=== PATIENT | male | born 1955 | race Caucasian/White ===

== ENCOUNTER 2017-04-19 09:15 | Emergency (ER) | payer BC ==
[2017-04-19 09:36] VITALS: BP 154/92
--- NOTE | 2017-04-19 10:05 | UC ---
General HPI - HPI Summary HPI Summary: Pt presents to the reports x 6 days not feeling himself. Pt states feels fatigue, decreased energy and mood is somewhat unsettled. Pt denies fevers, chills, rash. Pt denies cp, sob, abd pain. no n/v/d. No AWAD, vision changes. PT states has a h/o a fib with ablation in 2016. Pt states then developed GI bleed from AVM which was cauterized as well. Pt states resumed smoking. Pt states feels not himself and wanted to be checked. Pt with neg cardiac cath 10 years ago. No coronary artery imaging since this time. Pt medications reviewed at this visit - History of Current Complaint Chief Complaint: UCGeneralIllness Stated Complaint: DOES NOT FEEL RIGHT Time Seen by Provider: 04/19/17 09:41 Hx Obtained From: Patient Onset Severity: Mild Current Severity: Mild Pain Intensity: 0 - Allergy/Home Medications Allergies/Adverse Reactions: Allergies Allergy/AdvReac Type Severity Reaction Status Date / Time No Known Allergies Allergy Verified 04/19/17 09:26 Home Medications: Home Medications Losartan TAB* [Cozaar TAB*] 1 tab PO DAILY 04/19/17 [History Confirmed 04/19/17] PMH/Surg Hx/FS Hx/Imm Hx Previously Healthy: Yes Endocrine History: Dyslipidemia Cardiovascular History: Hypertension, Atrial Fibrillation - Surgical History Surgical History: Yes Surgery Procedure, Year, and Place: APPY. TONSILS. CARDIAC ABLATION. SURGERY TO CORRECT/BURN GI BLEED ([facility]) - Family History Known Family History: Positive: Cardiac Disease - CHF - Social History Occupation: Employed Full-time Lives: With Family Alcohol Use: Occasionally Substance Use Type: None Smoking Status (MU): Light Every Day Tobacco Smoker Type: Cigarettes Amount Used/How Often: 1 pack a day since he was in his twenties Have You Smoked in the Last Year: Yes - Immunization History Most Recent Influenza Vaccination: never Most Recent Tetanus Shot: unk Most Recent Pneumonia Vaccination: never Review of Systems Constitutional: Fatigue Skin: Negative Eyes: Negative ENT: Negative Respiratory: Negative Cardiovascular: Negative Gastrointestinal: Negative Genitourinary: Negative Motor: Negative Neurovascular: Negative Musculoskeletal: Negative Neurological: Negative Psychological: Negative All Other Systems Reviewed And Are Negative: Yes Physical Exam Triage Information Reviewed: Yes Appearance: Well-Appearing, No Pain Distress, Well-Nourished, Other: - A+Ox3 tired appearing NAD Vital Signs: Initial Vital Signs Temp 99.3 F 04/19/17 09:30 Pulse 64 04/19/17 09:30 Resp 16 04/19/17 09:30 BP 154/92 04/19/17 09:30 Pulse Ox 98 04/19/17 09:30 Vital Signs Reviewed: Yes Eye Exam: Normal Eyes: Positive: Conjunctiva Clear ENT Exam: Normal ENT: Positive: Hearing grossly normal, Pharynx normal, TMs normal Neck exam: Normal Neck: Positive: Supple, Nontender, No Lymphadenopathy Respiratory Exam: Normal Respiratory: Positive: Chest non-tender, Lungs clear, Normal breath sounds Cardiovascular Exam: Normal Cardiovascular: Positive: RRR, No Murmur, Other: - no bruits b/l Abdominal Exam: Normal Abdomen Description: Positive: Nontender, No Organomegaly, Soft Bowel Sounds: Positive: Present Musculoskeletal Exam: Normal Musculoskeletal: Positive: Strength Intact, ROM Intact, No Edema Neurological Exam: Normal Neurological: Positive: Alert Psychological Exam: Normal Psychological: Positive: Normal Response To Family Skin Exam: Normal Diagnostics - EKG Cardiac Rate: NL Cardiac Rhythm: Sinus: Normal Ectopy: PVCs, PACs ST Segment: Normal Course/Dx - Course Course Of Treatment: Pt presents with feeling fatigue and "off" x 6 days. Pt denies pain or focal symptoms. Pt with h/o atrial fib s/p ablation. Pt EKG today sinus rhythm with PAC, PVC. d/w pt at length - recommend transfer to ED for labs and further monitoring and evaluation. Pt comfortable and in agreement with plan. Pt declined EMS. at bedside to drive to ED. Pt's BP noted to be elevated - pt advised to f/u - Differential Dx - Multi-Symptom Provider Diagnoses: fatigue,. PACs. PVCs Discharge - Discharge Plan Condition: Stable Disposition: AGAINST MEDICAL ADVICE Patient Education Materials: Palpitations (ED), Fatigue (ED) Referrals: No Primary Care Phys,NOPCP [Primary Care Provider] - Additional Instructions: The doctor that evaluated you today recommends you go to the hospital for additoinal evaluation. You will likely have bloodwork and imaging as well as additional heart monitoring It is recommended someone drive you as you have declined an ambulance Do directly to the emergency department - they are expecting you. If your symptoms change or you have any concerns, frame pulley mortising machine operator and call 911
== END 2017-04-19 10:05 | disposition left against medical advice (07) ==
LOC: UCEAST 09:15
DX: R53.83 Other fatigue (principal); I49.1 Atrial premature depolarization; I49.3 Ventricular premature depolarization; E78.5 Hyperlipidemia, unspecified; I10 Essential (primary) hypertension; I48.91 Unspecified atrial fibrillation; F17.210 Nicotine dependence, cigarettes, uncomplicated
CPT/HCPCS: 99213; G0463

== ENCOUNTER 2017-04-19 10:27 | Emergency (ER) | payer BC ==
[2017-04-19 12:07] LABS: Hematocrit 47 % (42-52); Hemoglobin 15.5 g/dl (14.0-18.0); Mean Corpuscular HGB Conc 33 g/dl (31-36); Mean Corpuscular Hemoglobin 29 pg (27-31); Mean Corpuscular Volume 89 fL (80-94); Mean Platelet Volume 8 um3 (7.4-10.4); Red Blood Count 5.28 10^6/ul (4.0-5.4); Red Cell Distribution Width 15 % (10.5-15)
[2017-04-19 12:22] LABS: Albumin 4.1 g/dL (3.2-5.2); Calcium 9.2 mg/dL (8.6-10.3); EGFR African American 126.4 (>60); EGFR Non-African American 98.3 (>60); Globulin 2.7 g/dL (2-4); Magnesium 2.1 mg/dL (1.9-2.7); Potassium 3.9 mmol/L (3.5-5.0); Total Bilirubin 0.4 mg/dL (0.2-1.0); Total Protein 6.8 g/dL (6.4-8.9)
[2017-04-19 12:24] LABS: Troponin I 0.01 ng/mL (<0.04)
[2017-04-19 13:07] LABS: TSH (Thyroid Stimulating Horm) 0.79 mcIU/mL (0.34-5.60)
[2017-04-19 13:43] VITALS: BP 137/86
--- NOTE | 2017-04-19 15:28 | ED ---
Agustina Khan Auryana, scribed for Víctor Bedolla MD on 04/19/17 at 1121 . Palpitations / Dysrhythmia - HPI Summary HPI Summary: 61 year old male was referred to the ED from [facility] for further assessment of abnormal EKG. Patient reports that he has not been feeling well - unsure if stressed or over working and states that the EKG done at [facility] showed "extra beats" - unaware of extra beats. He is not on a blood thinner. He denies any recent episodes since an ablation and denies any excessive caffeine use - reports 1 cup/day. PMHX is significant for a-fib (unaware of previous episode until diagnosed), cardiac ablation, and GI bleed . - History of Current Complaint Chief Complaint: EDDysrhythmPalp Time Seen by Provider: 04/19/17 10:51 Hx Obtained From: Patient Onset/Duration: Gradual Onset, Still Present Timing: Constant Severity Initially: Mild Severity Currently: Mild Character: Irregular - seen on EKG - states does not feel them Aggravating: Exertion - STRESS/OVERWORK Related History: Similar Episode/Dx as - see HPI - Allergy/Home Medications Allergies/Adverse Reactions: Allergies Allergy/AdvReac Type Severity Reaction Status Date / Time No Known Allergies Allergy Verified 04/19/17 09:26 PMH/Surg Hx/FS Hx/Imm Hx Endocrine/Hematology History: Denies: Hx Diabetes, Hx Thyroid Disease Cardiovascular History: Reports: Hx Atrial Fibrillation, Hx Hypertension, Hx Syncope, Other Cardiovascular Problems/Disorders - mitral valve prolapse, RECENT ABLATION FOR A-FIB WHICH Denies: Hx Congestive Heart Failure Respiratory History: Reports: Hx Sleep Apnea Denies: Hx Asthma, Hx Chronic Obstructive Pulmonary Disease (COPD) GI History: Reports: Hx Gastroesophageal Reflux Disease Denies: Hx Ulcer History: Denies: Hx Dialysis, Hx Renal Disease Sensory History: Reports: Hx Contacts or Glasses Opthamlomology History: Reports: Hx Contacts or Glasses Psychiatric History: Reports: Hx Substance Abuse - etoh - Surgical History Surgery Procedure, Year, and Place: APPY. TONSILS. CARDIAC ABLATION. SURGERY TO CORRECT/BURN GI BLEED Hx Anesthesia Reactions: No Infectious Disease History: No Infectious Disease History: Denies: Hx Clostridium Difficile, Hx Hepatitis, Hx Human Immunodeficiency Virus (HIV), Hx of Known/Suspected MRSA, Hx Shingles, Hx Tuberculosis, Hx Known/ Suspected VRE, Hx Known/Suspected VRSA, History Other Infectious Disease, Traveled Outside the [place] in Last 30 Days - Family History Known Family History: Positive: Cardiac Disease - CHF - Social History Occupation: Employed Full-time Lives: With Family Alcohol Use: Occasionally Substance Use Type: Reports: None Hx Tobacco Use: Yes Smoking Status (MU): Heavy Every Day Tobacco Smoker Type: Cigarettes Amount Used/How Often: 1 pack a day since he was in his twenties Have You Smoked in the Last Year: Yes Review of Systems Positive: Other - general illness. Negative: Fever Eyes: Negative ENT: Negative Positive: Palpitations Respiratory: Negative Gastrointestinal: Negative Genitourinary: Negative Musculoskeletal: Negative Skin: Negative Neurological: Negative Psychological: Normal All Other Systems Reviewed And Are Negative: Yes Physical Exam Triage Information Reviewed: Yes Vital Signs On Initial Exam: Initial Vitals Temp Pulse Resp BP Pulse Ox 98.6 F 68 16 154/82 97 04/19/17 10:29 04/19/17 10:29 04/19/17 10:29 04/19/17 10:29 04/19/17 10:29 Vital Signs Reviewed: Yes Appearance: Positive: Well-Appearing, No Pain Distress, Well-Nourished Skin: Positive: Warm, Skin Color Reflects Adequate Perfusion, Dry Head/Face: Positive: Normal Head/Face Inspection Eyes: Positive: Normal ENT: Positive: Normal ENT inspection Neck: Positive: Supple, Nontender Respiratory/Lung Sounds: Positive: Clear to Auscultation, Breath Sounds Present Cardiovascular: Positive: Other - irregularly irregular heartbeat Abdomen Description: Positive: Nontender, Soft Musculoskeletal: Positive: Normal, Strength/ROM Intact Neurological: Positive: Normal, Sensory/Motor Intact Psychiatric: Positive: Normal, Affect/Mood Appropriate Diagnostics - Vital Signs Vital Signs Temp Pulse Resp BP Pulse Ox 04/19/17 10:57 18 04/19/17 10:41 15 04/19/17 10:40 154/82 04/19/17 10:29 98.6 F 68 17 154/82 97 - Laboratory Lab Results: Lab Results 04/19/17 04/19/17 04/19/17 Range/Units 11:57 11:57 11:57 WBC 8.0 (3.5-10.8) 10^3/ul RBC 5.28 (4.0-5.4) 10^6/ul Hgb 15.5 (14.0-18.0) g/dl Hct 47 (42-52) % MCV 89 (80-94) fL MCH 29 (27-31) pg MCHC 33 (31-36) g/dl RDW 15 (10.5-15) % Plt Count 229 (150-450) 10^3/ul MPV 8 (7.4-10.4) um3 Neut % (Auto) 67.4 (38-83) % Lymph % (Auto) 20.1 L (25-47) % [place] % (Auto) 10.5 H (1-9) % Eos % (Auto) 1.2 (0-6) % Baso % (Auto) 0.8 (0-2) % Absolute Neuts (auto) 5.4 (1.5-7.7) 10^3/ul Absolute Lymphs (auto) 1.6 (1.0-4.8) 10^3/ul Absolute Monos (auto) 0.8 (0-0.8) 10^3/ul Absolute Eos (auto) 0.1 (0-0.6) 10^3/ul Absolute Basos (auto) 0.1 (0-0.2) 10^3/ul Absolute Nucleated RBC 0.01 10^3/ul Nucleated RBC % 0.1 Sodium 135 (133-145) mmol/L Potassium 3.9 (3.5-5.0) mmol/L Chloride 105 (101-111) mmol/L Carbon Dioxide 25 (22-32) mmol/L Anion Gap 5 (2-11) mmol/L BUN 12 (6-24) mg/dL Creatinine 0.80 (0.67-1.17) mg/dL Est GFR ( Amer) 126.4 (>60) Est GFR (Non-Af Amer) 98.3 (>60) BUN/Creatinine Ratio 15.0 (8-20) Glucose 97 (70-100) mg/dL Lactic Acid 0.8 (0.5-2.0) mmol/L Calcium 9.2 (8.6-10.3) mg/dL Magnesium 2.1 (1.9-2.7) mg/dL Total Bilirubin 0.40 (0.2-1.0) mg/dL AST 14 (13-39) U/L ALT 13 (7-52) U/L Alkaline Phosphatase 70 (34-104) U/L Troponin I 0.01 (<0.04) ng/mL Total Protein 6.8 (6.4-8.9) g/dL Albumin 4.1 (3.2-5.2) g/dL Globulin 2.7 (2-4) g/dL Albumin/Globulin Ratio 1.5 (1-3) TSH 0.79 (0.34-5.60) mcIU/mL Result Diagrams: 04/19/17 11:57 04/19/17 11:57 Lab Statement: Any lab studies that have been ordered have been reviewed, and results considered in the medical decision making process. - EKG 10:42 EKG Interpretation: NSR with frequent PVCs Re-Evaluation - Re-Evaluation First Eval Re-Evaluation Time: 13:26 - discussed discharge and f/u Course/Dx - Course Course Of Treatment: has been feeling unwell for 2-3 days. He denies CP, SOB, palpitations, N/V/D. He felt similarly when he had A-fib in the past ( prior to his ablation) so he went to [facility] to make sure he wasn't back in it. They noted him to be in sinus with frequent VPC's and sent him over here. His W/ U here was unremarkable but he did continue to have frequent VPC's. I don't think anything dangerous is happening and will recommend D/C and close F/U. - Diagnoses Provider Diagnoses: Malaise Discharge - Discharge Plan Condition: Stable Disposition: HOME Patient Education Materials: Fatigue (ED) Referrals: [facility] [place] [facility] [Outside] - 3 Days The documentation as recorded by the Agustina byrnes Auryana accurately reflects the service I personally performed and the decisions made by me, Víctor Bedolla MD.
== END 2017-04-19 13:43 | disposition home or self-care (01) ==
LOC: ED 10:27
DX: R53.81 Other malaise (principal); K21.9 Gastro-esophageal reflux disease without esophagitis; F17.210 Nicotine dependence, cigarettes, uncomplicated; I48.91 Unspecified atrial fibrillation; I10 Essential (primary) hypertension; I34.1 Nonrheumatic mitral (valve) prolapse
CPT/HCPCS: 36415; 80053; 83605; 83735; 84443; 84484; 85025; 93005; 99282

== ENCOUNTER 2018-03-08 08:21 | Emergency (ER) | payer BC ==
[2018-03-08] MEDS ORDERED: NS 0.9% 1000 ML* 1,000 ML IV SCH (08:45)
[2018-03-08 08:58] LABS: ABS Basophils 0.1 10^3/ul (0-0.2); ABS Eosinophils 0.3 10^3/ul (0-0.6); ABS Lymphocytes 1.9 10^3/ul (1.0-4.8); ABS Monocytes 0.9 10^3/ul (0-0.8); ABS Neutrophils 6.6 10^3/ul (1.5-7.7); ABS Nucleated RBC 0 10^3/ul; Eosinophil % 2.7 % (0-6); Hematocrit 43 % (42-52); Hemoglobin 14.9 g/dl (14.0-18.0); Lymphocyte % 19.3 % (25-47); Mean Corpuscular HGB Conc 35 g/dl (31-36); Mean Corpuscular Hemoglobin 29 pg (27-31); Mean Corpuscular Volume 85 fL (80-94); Mean Platelet Volume 7.6 um3 (7.4-10.4); Nucleated Red Blood Cells % 0.1; Platelet Count 355 10^3/ul (150-450); Red Blood Count 5.08 10^6/ul (4.0-5.4); Red Cell Distribution Width 14 % (10.5-15); White Blood Count 9.7 10^3/ul (3.5-10.8)
[2018-03-08 09:10] LABS: INR 1.28 (0.77-1.02)
[2018-03-08 09:25] LABS: EGFR Non-African American 82.3 (>60)
--- NOTE | 2018-03-08 09:36 | RAD ---
Indication: Tachycardia. Single frontal view of the chest performed at 0851 hours was reviewed. Comparison is made with previous exam dated February 26, 2016. No mediastinal shift is noted. Heart is of normal size and configuration. Lung mishra appear clear. IMPRESSION: NO ACTIVE CARDIOPULMONARY DISEASE IS NOTED.
[2018-03-08] MEDS ORDERED: Ondansetron ODT TAB* 4 MG PO ONE (11:21)
[2018-03-08] MEDS ORDERED: Flumazenil* 0.1 MG/ML 5 ML MDV ONE (11:25)
[2018-03-08] MEDS ORDERED: Midazolam* 1 MG/ML 10 ML VIAL (10 MG) ONE (11:25)
[2018-03-08] MEDS ORDERED: fentaNYL* 50 MCG/ML 2 ML VIAL (100 MCG VIAL) ONE (11:25)
[2018-03-08] MEDS ORDERED: Naloxone* 0.4 MG/ML 1 ML VIAL ONE (11:25)
--- NOTE | 2018-03-08 13:35 | ED ---
Parviz Khan Stephanie, scribed for Marcello Morrison MD on 03/08/18 at 0941 . HPI Cardiac - HPI Summary HPI Summary: The pt is a 62 y/o M presenting to the ED with c/o increased HR that began on 10/13. He denies CP and SOB. The pt states he called his MD and was told to take extra metoprolol however, his HR did not decrease. - History of Current Complaint Chief Complaint: EDDysrhythmPalp Stated Complaint: HIGH HEART RATE-SENT BY Time Seen by Provider: 03/08/18 08:38 Hx Obtained From: Patient Onset/Duration: Started Days Ago - 1, Still Present Timing: Constant Current Severity: None Pain Intensity: 0 Pain Scale Used: 0-10 Numeric Chest Pain Radiates: No Aggravating Factor(s): Nothing Alleviating Factor(s): Nothing Associated Signs and Symptoms: Negative: Chest Pain, Shortness of Breath - Additional Pertinent History Primary Care Physician: [id number] - Allergy/Home Medications Allergies/Adverse Reactions: Allergies Allergy/AdvReac Type Severity Reaction Status Date / Time No Known Allergies Allergy Verified 03/08/18 09:00 PMH/Surg Hx/FS Hx/Imm Hx Endocrine/Hematology History: Denies: Hx Diabetes, Hx Thyroid Disease Cardiovascular History: Reports: Hx Atrial Fibrillation, Hx Hypertension, Hx Syncope, Other Cardiovascular Problems/Disorders - mitral valve prolapse, RECENT ABLATION 02/19/18 FOR A-FIB WHICH Denies: Hx Congestive Heart Failure Respiratory History: Reports: Hx Sleep Apnea Denies: Hx Asthma, Hx Chronic Obstructive Pulmonary Disease (COPD) GI History: Reports: Hx Gastroesophageal Reflux Disease Denies: Hx Ulcer History: Denies: Hx Dialysis, Hx Renal Disease Sensory History: Reports: Hx Contacts or Glasses Opthamlomology History: Reports: Hx Contacts or Glasses Psychiatric History: Reports: Hx Substance Abuse - etoh - Surgical History Surgery Procedure, Year, and Place: APPY. TONSILS. CARDIAC ABLATION. SURGERY TO CORRECT/BURN GI BLEED Hx Anesthesia Reactions: No Infectious Disease History: No Infectious Disease History: Denies: Hx Clostridium Difficile, Hx Hepatitis, Hx Human Immunodeficiency Virus (HIV), Hx of Known/Suspected MRSA, Hx Shingles, Hx Tuberculosis, Hx Known/ Suspected VRE, Hx Known/Suspected VRSA, History Other Infectious Disease, Traveled Outside the [place] in Last 30 Days - Family History Known Family History: Positive: Cardiac Disease - CHF - Social History Occupation: Employed Full-time Lives: With Family Alcohol Use: Occasionally Hx Substance Use: No Substance Use Type: Reports: None Hx Tobacco Use: Yes Smoking Status (MU): Former Smoker Type: Cigarettes Amount Used/How Often: 1 pack a day since he was in his twenties Have You Smoked in the Last Year: Yes Review of Systems Negative: Fever Positive: Other - increased HR. Negative: Chest Pain Negative: Shortness Of Breath Negative: Slurred Speech All Other Systems Reviewed And Are Negative: Yes Physical Exam - Summary Physical Exam Summary: General: well-appearing, no pain distress Skin: warm, color reflects adequate perfusion, dry Head: normal Eyes: EOMI, YISSEL ENT: normal Neck: supple, nontender Respiratory: CTA, breath sounds present Cardiovascular: tachycardic, regular rhythm Abdomen: soft, nontender Bowel: present Musculoskeletal: normal, strength/ROM intact Neurological: sensory/motor intact, A&O x3 Psychological: affect/mood appropriate Triage Information Reviewed: Yes Vital Signs On Initial Exam: Initial Vitals Temp Pulse Resp BP Pulse Ox 97.9 F 68 16 127/95 95 03/08/18 08:30 03/08/18 08:30 03/08/18 08:30 03/08/18 08:30 03/08/18 08:30 Vital Signs Reviewed: Yes Diagnostics - Vital Signs Vital Signs Temp Pulse Resp BP Pulse Ox 03/08/18 09:09 21 132/108 03/08/18 09:00 15 03/08/18 08:38 115 131/104 96 03/08/18 08:30 97.9 F 68 16 127/95 95 - Laboratory Lab Results: Lab Results 03/08/18 03/08/18 03/08/18 Range/Units 08:49 08:49 08:49 WBC 9.7 (3.5-10.8) 10^3/ul RBC 5.08 (4.0-5.4) 10^6/ul Hgb 14.9 (14.0-18.0) g/dl Hct 43 (42-52) % MCV 85 (80-94) fL MCH 29 (27-31) pg MCHC 35 (31-36) g/dl RDW 14 (10.5-15) % Plt Count 355 (150-450) 10^3/ul MPV 7.6 (7.4-10.4) um3 Neut % (Auto) 67.9 (38-83) % Lymph % (Auto) 19.3 L (25-47) % [place] % (Auto) 9.3 H (0-7) % Eos % (Auto) 2.7 (0-6) % Baso % (Auto) 0.8 (0-2) % Absolute Neuts (auto) 6.6 (1.5-7.7) 10^3/ul Absolute Lymphs (auto) 1.9 (1.0-4.8) 10^3/ul Absolute Monos (auto) 0.9 H (0-0.8) 10^3/ul Absolute Eos (auto) 0.3 (0-0.6) 10^3/ul Absolute Basos (auto) 0.1 (0-0.2) 10^3/ul Absolute Nucleated RBC 0 10^3/ul Nucleated RBC % 0.1 INR (Anticoag Therapy) 1.28 H (0.77-1.02) APTT 39.3 H (26.0-36.3) seconds Sodium 139 (139-145) mmol/L Potassium 4.3 (3.5-5.0) mmol/L Chloride 106 (101-111) mmol/L Carbon Dioxide 26 (22-32) mmol/L Anion Gap 7 (2-11) mmol/L BUN 18 (6-24) mg/dL Creatinine 0.93 (0.67-1.17) mg/dL Est GFR ( Amer) 105.9 (>60) Est GFR (Non-Af Amer) 82.3 (>60) BUN/Creatinine Ratio 19.4 (8-20) Glucose 135 H (70-100) mg/dL Calcium 9.7 (8.6-10.3) mg/dL Magnesium 2.0 (1.9-2.7) mg/dL Total Bilirubin 0.50 (0.2-1.0) mg/dL AST 13 (13-39) U/L ALT 12 (7-52) U/L Alkaline Phosphatase 106 H (34-104) U/L B-Natriuretic Peptide ( - 100) pg/mL Total Protein 7.3 (6.4-8.9) g/dL Albumin 4.2 (3.2-5.2) g/dL Globulin 3.1 (2-4) g/dL Albumin/Globulin Ratio 1.4 (1-3) 03/08/18 Range/Units 08:49 WBC (3.5-10.8) 10^3/ul RBC (4.0-5.4) 10^6/ul Hgb (14.0-18.0) g/dl Hct (42-52) % MCV (80-94) fL MCH (27-31) pg MCHC (31-36) g/dl RDW (10.5-15) % Plt Count (150-450) 10^3/ul MPV (7.4-10.4) um3 Neut % (Auto) (38-83) % Lymph % (Auto) (25-47) % [place] % (Auto) (0-7) % Eos % (Auto) (0-6) % Baso % (Auto) (0-2) % Absolute Neuts (auto) (1.5-7.7) 10^3/ul Absolute Lymphs (auto) (1.0-4.8) 10^3/ul Absolute Monos (auto) (0-0.8) 10^3/ul Absolute Eos (auto) (0-0.6) 10^3/ul Absolute Basos (auto) (0-0.2) 10^3/ul Absolute Nucleated RBC 10^3/ul Nucleated RBC % INR (Anticoag Therapy) (0.77-1.02) APTT (26.0-36.3) seconds Sodium (139-145) mmol/L Potassium (3.5-5.0) mmol/L Chloride (101-111) mmol/L Carbon Dioxide (22-32) mmol/L Anion Gap (2-11) mmol/L BUN (6-24) mg/dL Creatinine (0.67-1.17) mg/dL Est GFR ( Amer) (>60) Est GFR (Non-Af Amer) (>60) BUN/Creatinine Ratio (8-20) Glucose (70-100) mg/dL Calcium (8.6-10.3) mg/dL Magnesium (1.9-2.7) mg/dL Total Bilirubin (0.2-1.0) mg/dL AST (13-39) U/L ALT (7-52) U/L Alkaline Phosphatase (34-104) U/L B-Natriuretic Peptide 406 H ( - 100) pg/mL Total Protein (6.4-8.9) g/dL Albumin (3.2-5.2) g/dL Globulin (2-4) g/dL Albumin/Globulin Ratio (1-3) Result Diagrams: 03/08/18 08:49 03/08/18 08:49 Lab Statement: Any lab studies that have been ordered have been reviewed, and results considered in the medical decision making process. - Radiology CXR Xray Interpretation: No Acute Changes Radiology Interpretation Completed By: Radiologist - NO ACTIVE CARDIOPULMONARY DISEASE IS NOTED. ED physician has reviewed this report. - EKG 09:04 Cardiac Rate: Tachycardia EKG Rhythm: Atrial Fibrillation - 130 BPM, rapid ST Segment: Normal Ectopy: PVCs 12:10 Cardiac Rate: NL EKG Rhythm: Sinus Rhythm - [address] Segment: Normal Ectopy: PVCs EKG Interpretation: borderline prolonged QT interval QTc (479) Disposition - Course Course Of Treatment: DISCUSSED RESULTS WITH THE PATIENT AND CARDIOLOGY, DR CASTREJON. DR CASTREJON CARDIOVERTED THE PATIENT IN THE ED. F/U DR ROBERT, CARDIOLOGY; RETURN IF WORSE. CRITICAL CARE TIME LESS THAN 30 MINUTES. - Diagnoses Provider Diagnoses: Rapid atrial fibrillation, Encounter for cardioversion procedure - Physician Notifications Discussed Care Of Patient With: Camilo Castrejon - Prepare pt for cardioversion. Time Discussed With Above Provider: 10:59 Discharge - Sign-Out/Discharge Documenting (check all that apply): Discharge/Admit/Transfer - Discharge Plan Condition: Stable Disposition: HOME Patient Education Materials: A-fib (Atrial Fibrillation) (ED), Cardioversion ( DC) Referrals: Sybil Solares MD [Primary Care Provider] - Héctor Robert MD [Medical Doctor] - Additional Instructions: FOLLOW UP WITH DR ROBERT, YOUR MOTTLER OPERATOR, TOMORROW. RETURN TO THE EMERGENCY DEPARTMENT FOR ANY WORSENING OF YOUR CONDITION OR QUESTIONS OR CONCERNS. - Billing Disposition and Condition Condition: STABLE Disposition: HOME The documentation as recorded by the Parviz byrnes Stephanie accurately reflects the service I personally performed and the decisions made by , Marcello Morrison MD.
[2018-03-08 14:06] VITALS: BP 126/83
--- NOTE | 2018-03-08 19:07 | CONS ---
CC: Dr. Robert; Dr. Batista; ER physician, Dr. Morrison * CARDIOLOGY CONSULT: DATE OF CONSULT: 03/08/18 - EMERGENCY DEPT HISTORY OF PRESENT ILLNESS: I was asked by Dr. Morrison to see this 62-year- old male patient with known history of atrial fibrillation and history of ablation x2. The patient presented to the emergency room with tachycardia. He was found to be in atrial flutter/fibrillation. He was symptomatic. He does have known history of this and history of ablation, most recently a few weeks ago. A week ago, he had tachycardia with atrial arrhythmia and that needed cardioversion. He has been maintained on his Eliquis 5 mg twice a day and metoprolol 75 mg twice a day. He took them regularly as supposed to. He gives no chest pain, no orthopnea, no PND, no nausea, no vomiting, no hematochezia, no skin rash. No swelling in the lower extremities is appreciated. No fever, no chills. Cardiology consult was further requested for further help in management. PAST MEDICAL HISTORY: Includes systemic arterial hypertension and atrial fibrillation, status post ablation. His last echo, I have recent actually echo in December 2017, showed him to have an EF 40% to 45% with [id number] mitral insufficiency and mild prolapse of the of the mitral valve leaflets. MEDICATIONS: As an outpatient include: 1. Metoprolol 75 mg twice a day. 2. Lipitor 20 mg daily. 3. Aspirin 81 mg daily. 4. Eliquis 5 mg twice a day. 5. Omeprazole 40 mg daily. 6. Losartan 100 mg daily. 7. Hydroxyzine 1 to 3 tablets by mouth 3 times daily p.r.n. ALLERGIES: He has no known drug allergies. FAMILY HISTORY: No family history of premature coronary artery disease. SOCIAL HISTORY: He is . 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 He used to smoke, he quit many years ago and drinking occasionally. No history of illicit drug use. PHYSICAL EXAM: He is awake, alert, and oriented. His blood pressure is 130/80 ; his pulse 120, he is in atrial fibrillation, irregularly irregular; he is afebrile. Head and Neck Exam: Normocephalic, atraumatic head. Ears, Nose, and Throat: Essentially benign. Neck: Supple. JVP is not elevated. No carotid bruits. No masses in the neck are appreciated. Chest: Clear to auscultation. No rales. No wheezes. No added sounds appreciated. Heart: Tachycardic, irregularly irregular, S1, S2. No added sounds. No gallops. No rubs. Abdomen: Benign. Positive bowel sounds. Extremities: No edema, no cyanosis, no clubbing. Skin exam is normal. Psych: Normal affect and mood. THERAPIST OCCUPATIONAL: No focal deficits appreciated. DIAGNOSTIC STUDIES/LAB DATA: His labs showed the following: His white blood cell 9.7, hemoglobin 14.9, hematocrit 43, platelets 355. His sodium 139, potassium 4.3, chloride 106, BUN 18, creatinine 0.93. Magnesium is 2. LFTs are normal. BNP 406. His EKG showed him to be in rapid atrial fibrillation. IMPRESSION: The patient is a 62-year-old male patient with known history of atrial fibrillation, ablation x2, most recently 2 weeks ago at the [facility] and history of multiple cardioversions, most recently a week ago, now he presented with symptomatic rapid atrial fibrillation. PLAN: The patient will undergo direct current cardioversion. Benefits, risks discussed with the patient. He is willing to proceed. Any further recommendations will be based on his clinical outcome. Please refer to a full separate note as per direct current cardioversion. He is to avoid significant alcohol, caffeine drinks and stimulant. He is to stay well hydrated. He is to keep electrolytes within normal limits especially his potassium and magnesium. He is to follow up with his primary jewel hole finish opener, Dr. Robert, for further recommendations. [id number]/[facility] #: [id number] [facility] MEDICAL CENTERLavelle
--- NOTE | 2018-03-08 20:54 | CARD ---
CC: Dr. Robert; Dr. Solares; Dr. Smith; Dr. Morrison DIRECT CURRENT CARDIOVERSION NOTE: DATE OF PROCEDURE: 03/08/18 ER PHYSICIAN: Dr. Morrison. INDICATIONS: Please refer to our full consult done by me today. The patient is a 62-year-old male p atient with known history of atrial fibrillation and status post radiofrequency ablation most recentl y 2 weeks ago at the [facility], who had also history of cardio version most recently a week ago, presented with symptomatic tachycardic atrial fibrillation. DESCRIPTION OF PROCEDURE: After informed written consent had been obtained and with continuous blood pressure, pulse oximetry, and heart rate monitoring, and after evaluating the patient's labs, the pa pablo did take his Eliquis most recently this morning 5 mg, he is on it maintained 5 mg twice a day. The patient did receive a total dose of Versed 7 mg intravenously and 50 mcg fentanyl intravenously. Direct current cardioversion synchronized 150 joules was delivered once and successfully converted the patient to normal sinus rhythm. There were no complications and the patient tolerated the proced ure very well. Monitor showed heart rate 70 beats per minute, normal sinus rhythm, and an immediate EKG was obtained. CONCLUSION: Successful direct current cardioversion for atrial fibrillation. The patient to continu e on his current medical regimen. Follow up with his primary physician coding specialist, Dr. Robert, as an outpatie nt. [id number]/[facility] #: [id number]
== END 2018-03-08 14:23 | disposition home or self-care (01) ==
LOC: ED 08:21
DX: I48.91 Unspecified atrial fibrillation (principal); Z87.891 Personal history of nicotine dependence
CPT/HCPCS: 36415; 71045; 80053; 83735; 83880; 85025; 85610; 85730; 92960; 93005; 96374; 99285; A9270-GY; J2250; J2310; J3010

== ENCOUNTER → 2018-06-08 08:24 | Day surgery (SDC) | payer BC ==
[~2018-06-08 08:24] MED LIST: Diazepam TAB(*) 5 MG ONE; Heparin 2 UNITS/ML IVPREMIX* 2,000 ML IV ONE; Heparin(*) 1000 UNIT/ML 10 ML VIAL CATH LAB IV ONE; Iohexol 350 (CONTRAST) 200 ML MDV IV ONE; Lidocaine 1%* 5 ML VIAL ONE; Midazolam* 1 MG/ML 10 ML VIAL (10 MG) ONE; NS 0.9% 1000 ML* 1,000 ML IV SCH; VERAPAMIL 2.5 MG/ML 2 ML VIAL ** 5 mg/2 ml ONE; diPHENhydraMINE PO* 25 MG ONE; fentaNYL* 50 MCG/ML 2 ML VIAL (100 MCG VIAL) ONE; nitroGLYCERIN DRIP* 25,000 MCG/250 ML BTL ONE
[2018-06-08 09:45] LABS: EGFR Non-African American 103.6 (>60)
[2018-06-08 12:46] VITALS: BP 141/80
--- NOTE | 2018-06-08 23:25 | CATH ---
CC: Dr. Sybil Batista; Dr. Marco A Moss, [facility], [place], [place] CARDIAC CATHETERIZATION REPORT: DATE OF PROCEDURE: 06/08/18 PROCEDURE: Cardiac catheterization with coronary angiography, left heart catheterization, left ventr iculogram. INDICATION: Cardiomyopathy, abnormal stress test. The patient is a 63-year-old gentleman with a history of mild cardiomyopathy, history of paroxysmal a trial fibrillation. The patient has had an ablation in the past. The patient has had episodes of at rial fibrillation. The patient is being evaluated for use of antiarrhythmic medications. The patien t underwent a chemical nuclear stress test, which showed a fixed area of defect in the inferior wall consistent with an old myocardial infarction. Cardiac catheterization was recommended to delineate c oronary arteries. DESCRIPTION OF PROCEDURE: The patient was brought to the cardiac catheterization lab in a fasting st ate. Informed consent had been obtained prior to the procedure. All labs were reviewed. The patient was placed supine on the procedure table. His right wrist area was prepped and draped in the usual fashion. 1% lidocaine was used for local anesthesia. The radial artery was entered by a modified Se conner technique and a guidewire was placed. Over the guidewire, a 6-Bolivian hydrophilic sheath was placed. The patient had an infusion of heparin, verapamil, and nitroglycerin through the sheath. Th e patient underwent coronary angiography and left ventriculography using the 6-Bolivian TIG catheter an d a 5-Bolivian pigtail catheter. At the end of the procedure, all sheaths and catheters were removed. The patient tolerated the procedure well. There were no complications. A total of 80 cc of Omnipaqu e dye was used. A total of 7.1 minutes of fluoro time was used. FINDINGS: 1. Left main artery: The left main was normal in size. It bifurcated into the LAD and circumflex a rtery. There was no evidence of stenosis. 2. Left anterior descending artery: The LAD was normal in size. It gave off 2 diagonal vessels. T here was no evidence of stenosis. 3. Left circumflex artery: The left circumflex artery was small. There was no evidence of stenosis . 4. Right coronary artery was a large dominant vessel giving off the PDA and large posterolateral bra nches. There was no evidence of stenosis. Left ventriculogram: Left ventricle was normal in size. Overall systolic function of the ventricle was mildly reduced. Estimated ejection fraction 45%. There were no focal wall motion abnormalities. There was no mitral regurgitation. Aortic valve and ascending aorta appeared normal. IMPRESSION: 1. Normal coronary arteries. 2. Mildly reduced LV systolic function at 45% ejection fraction. RECOMMENDATION: The patient will continue on current medications. The patient will be evaluated for antiarrhythmic medications for his atrial fibrillation. [id number]/[facility] #: [id number]
== END | disposition home or self-care (01) ==
LOC: CHICATH 08:24
PROVIDERS: ATTEND Specialist
DX: I42.9 Cardiomyopathy, unspecified (principal); R94.39 Abnormal result of other cardiovascular function study; Z79.01 Long term (current) use of anticoagulants; I48.0 Paroxysmal atrial fibrillation; I49.3 Ventricular premature depolarization; I34.0 Nonrheumatic mitral (valve) insufficiency; Z87.891 Personal history of nicotine dependence
CPT/HCPCS: 36415; 80048; 93458; A9270-GY; J1644; J2250; J3010

== ENCOUNTER 2019-03-29 19:49 | Emergency (ER) | payer BC ==
[2019-03-29 20:22] VITALS: BP 163/99
[2019-03-29] MEDS ORDERED: HYDROcodone/ACETAMIN 5-325 MG* 1 TAB PO ONE ×2 (21:49→21:50)
--- NOTE | 2019-03-29 21:58 | UC ---
Elbow Pain - HPI Summary HPI Summary: 63-year-old male presents with complaints of right elbow pain. States this afternoon he tripped and fell to the ground landing with is right arm beneath him. Did not hit head and had no LOC. States he initially had only minimal pain and was able to continue to work and use the arm. Pain progressively worsened this evening to the point that he is unable to fully extend the arm without significant pain. Denies numbness, tingling, or other injury. - History of Current Complaint Chief Complaint: UCUpperExtremity Stated Complaint: ARM INJURY Time Seen by Provider: 03/29/19 21:13 Hx Obtained From: Patient Pain Intensity: 10 - Allergies/Home Medications Allergies/Adverse Reactions: Allergies Allergy/AdvReac Type Severity Reaction Status Date / Time No Known Allergies Allergy Verified 03/29/19 20:22 PMH/Surg Hx/FS Hx/Imm Hx Endocrine History: Dyslipidemia Cardiovascular History: Hypertension, Atrial Fibrillation GI/ History: Gastrointestional Bleed - Surgical History Surgical History: Yes Surgery Procedure, Year, and Place: APPY. TONSILS. CARDIAC ABLATION. SURGERY TO CORRECT/BURN GI BLEED - Family History Known Family History: Positive: Cardiac Disease - CHF - Social History Occupation: Employed Full-time Lives: With Family Alcohol Use: Occasionally Substance Use Type: None Smoking Status (MU): Former Smoker Type: Cigarettes Amount Used/How Often: 1 pack a day since he was in his twenties Have You Smoked in the Last Year: Yes Household Exposure Type: Cigarettes - Immunization History Most Recent Influenza Vaccination: never Most Recent Tetanus Shot: unk Most Recent Pneumonia Vaccination: never Review of Systems All Other Systems Reviewed And Are Negative: Yes Constitutional: Positive: Negative Skin: Negative: Bruising Respiratory: Positive: Negative Cardiovascular: Positive: Negative Gastrointestinal: Positive: Negative Genitourinary: Positive: Negative Motor: Negative: Weakness Neurovascular: Negative: Decreased Sensation Musculoskeletal: Positive: Arthralgia - See HPI, Decreased ROM Neurological: Positive: Negative Is Patient Immunocompromised?: No Physical Exam - Summary Physical Exam Summary: GENERAL APPEARANCE: Well developed, well nourished, alert and cooperative who appears to be uncomfortable holding his right arm in a position of comfort. CARDIAC: Normal S1 and S2. No S3, S4 or murmurs. Rhythm is regular. There is no peripheral edema, cyanosis or pallor. Extremities are warm and well perfused. Capillary refill is less than 2 seconds. Peripheral pulses intact. LUNGS: Clear to auscultation without rales, rhonchi, wheezing or diminished breath sounds. ABDOMEN: Positive bowel sounds. Soft, nondistended, nontender. No guarding or rebound. No masses or hepatosplenomegally. MUSKULOSKELETAL: Normal muscular development. Normal gait. EXTREMITIES: Significant tenderness over the lateral aspect of the right elbow over the radial head without gross deformity, ecchymosis, or edema. Limited extension or the elbow due to pain. Circulation and sensation intact. SKIN: Skin normal color, texture and turgor with no lesions or eruptions. Triage Information Reviewed: Yes Vital Signs: Initial Vital Signs Temp 98.6 F 03/29/19 20:15 Pulse 76 03/29/19 20:15 Resp 18 03/29/19 20:15 BP 163/99 03/29/19 20:15 Pulse Ox 95 03/29/19 20:15 Vital Signs Reviewed: Yes Diagnostics - Radiology No standard instances Radiology Interpretation Completed By: ED Physician - Anterior and posterior fat pads, non-displaced fracture of the radial neck Elbow Pain Course/Dx - Course Course Of Treatment: 63-year-old male presents with complaints of right elbow pain. States this afternoon he tripped and fell to the ground landing with is right arm beneath him. Did not hit head and had no LOC. States he initially had only minimal pain and was able to continue to work and use the arm. Pain progressively worsened this evening to the point that he is unable to fully extend the arm without significant pain. Denies numbness, tingling, or other injury. Afebrile. Hypertensive otherwise VSS. Patient had significant tenderness over the lateral aspect of the right elbow over the radial head without gross deformity, ecchymosis, or edema. Limited extension or the elbow due to pain. Circulation and sensation intact. X-ray showed anterior and posterior fat pads with a non-displaced fracture of the radial neck. Patient was placed in a sling and provided hydrocodone-acetaminophen 5 mg/325 mg 1 tab for pain. He was counseled on the need perform gentle ROM exercises as well as to use RICE. He was provided a prescription for hydrocodone- acetaminophen for pain. He is to follow up with orthopedic surgery in 2 days for evaluation and treatment. Anticipatory guidance and warning symptoms were reviewed with the patient. Verbalizes understanding and agrees with POC. - Differential Dx/Diagnosis Differential Diagnosis/HQI/PQRI: Contusion, Dislocation, Fracture (Closed), Sprain Provider Diagnosis: Radial head fracture, closed Discharge - Sign-Out/Discharge Documenting (check all that apply): Patient Departure All imaging exams completed and their final reports reviewed: No - Discharge Plan Condition: Stable Disposition: HOME Prescriptions: Hydrocodone/Acetaminophen [Hydrocodone-Acetamin 5-325 mg] 1 each PO Q6HR PRN # 20 tablet MDD 4 PRN Reason: Pain Patient Education Materials: Elbow Fracture (ED) Referrals: Sybil Solares MD [Primary Care Provider] - Dhruv Silva MD [Medical Doctor] - 2 Days (Call first thing tomorrow for appointment.) Additional Instructions: The x-ray performed in the clinic today showed evidence of a elbow fracture of the radial neck. The radiologist will be reviewing the x-ray in the morning and we will contact you if they see anything that would change your plan of care. Rest the arm as much as possible. You should wear the sling that was applied in the clinic for the next 2 days. You may remove to shower but should wear at all other times. It is important that you take the arm out of the sling every couple hours while you are awake and do some gentle range of motion exercises. Do not wear the sling for more than 2 days. Apply ice to the affected area for 15-20 minutes at least 4 times a day to help with the pain and swelling. Take acetaminophen (Tylenol) according to directions as needed for pain. Take hydrocodone-acetaminophen 5 mg/325 mg 1 tab every 6 hours as needed for severe pain. This medication will cause drowsiness. Do not drink alcohol, drive, or operate machinery while taking. Follow up with orthopedic surgery in 2 days for further evaluation and treatment. Call first thing in tomorrow morning to schedule an appointment. Seek immediate medical attention if you have severe pain not managed with pain medication, develop numbness or tingling in the hand or fingers, or have any worsening of symptoms. - Billing Disposition and Condition Condition: STABLE Disposition: Home
--- NOTE | 2019-03-30 13:06 | UC ---
- Progress Note Progress Note: RADIOLOGY REPORT REVIEWD. CONFIRMS TRANSVERSE NONDISPLACED FRACTURE OF THE RADIAL NECK. FOLLOW-UP ORTHO ADVISED. NO CHANGE IN MGMT. Course/Dx - Diagnoses Provider Diagnoses: Radial head fracture, closed Discharge - Sign-Out/Discharge Documenting (check all that apply): Post-Discharge Follow Up All imaging exams completed and their final reports reviewed: Yes - Discharge Plan Condition: Stable Disposition: HOME Prescriptions: Hydrocodone/Acetaminophen [Hydrocodone-Acetamin 5-325 mg] 1 each PO Q6HR PRN # 20 tablet MDD 4 PRN Reason: Pain Patient Education Materials: Elbow Fracture (ED) Referrals: Sybil Solares MD [Primary Care Provider] - Dhruv Silva MD [Medical Doctor] - 2 Days (Call first thing tomorrow for appointment.) Additional Instructions: The x-ray performed in the clinic today showed evidence of a elbow fracture, most likely of the radial head. The radiologist will be reviewing the x-ray in the morning and we will contact you if they see anything that would change your plan of care. Rest the arm as much as possible. You should wear the sling that was applied in the clinic for the next 2 days. You may remove to shower but should wear at all other times. It is important that you take the arm out of the sling every couple hours while you are awake and do some gentle range of motion exercises. Do not wear the sling for more than 2 days. Apply ice to the affected area for 15-20 minutes at least 4 times a day to help with the pain and swelling. Take acetaminophen (Tylenol) according to directions as needed for pain. Take hydrocodone-acetaminophen 5 mg/325 mg 1 tab every 6 hours as needed for severe pain. This medication will cause drowsiness. Do not drink alcohol, drive, or operate machinery while taking. Follow up with orthopedic surgery in 2 days for further evaluation and treatment. Call first thing in tomorrow morning to schedule an appointment. Seek immediate medical attention if you have severe pain not managed with pain medication, develop numbness or tingling in the hand or fingers, or have any worsening of symptoms. - Billing Disposition and Condition Condition: STABLE Disposition: Home
== END 2019-03-29 22:12 | disposition home or self-care (01) ==
LOC: UCEAST 19:49
DX: S52.124A Nondisplaced fracture of head of right radius, initial encounter for closed fracture (principal); X58.XXXA Exposure to other specified factors, initial encounter; Y92.9 Unspecified place or not applicable; Z87.891 Personal history of nicotine dependence
CPT/HCPCS: 99213; G0463